=== PATIENT | female | born 1975 ===

== ENCOUNTER → 2018-05-23 13:17 | Outpatient (CLI) | payer OTHER, SELFPAY ==
--- NOTE | 2018-05-23 | DI.MG.S_ITS ---
BILATERAL DIGITAL SCREENING MAMMOGRAM 3D/2D WITH CAD: 05/23/2018 CLINICAL: Baseline exam. Routine screening. Family history of breast cancer. No prior exams were available for comparison. The tissue of both breasts is extremely dense, which lowers the sensitivity of mammography. Current study was also evaluated with a Computer Aided Detection (CAD) system. No significant masses, calcifications, or other findings are seen in either breast. IMPRESSION: NEGATIVE There is no mammographic evidence of malignancy. A 1 year screening mammogram is recommended. This exam was interpreted at Station ID: [id number]. NOTE: For mammograms, a report in lay terms will be sent to the patient. Approximately 15% of breast malignancies will not be visualized mammographically. In the management of a palpable breast mass, a negative mammogram must not discourage biopsy of a clinically suspicious lesion. Electronically Signed By: Moe elmore/angela:05/23/2018 16:15:52 letter sent: Normal Exam ACR BI-RADS Category 1: Negative 3341F
== END ==
PROVIDERS: PCP Family Medicine; Visit Provider Family Medicine
DX: Z12.31 Encounter for screening mammogram for malignant neoplasm of breast (principal); Z80.3 Family history of malignant neoplasm of breast
CPT/HCPCS: 77063; 77067

== ENCOUNTER → 2019-07-16 09:48 | Outpatient (CLI) | payer OTHER, SELFPAY ==
--- NOTE | 2019-07-16 | DI.MG.S_ITS ---
BILATERAL DIGITAL SCREENING MAMMOGRAM 3D/2D WITH CAD: 07/16/2019 CLINICAL: Routine screening. Family history of breast cancer. Comparison is made to exam dated: 05/23/2018 [facility]. The tissue of both breasts is extremely dense, which lowers the sensitivity of mammography. Current study was also evaluated with a Computer Aided Detection (CAD) system. No significant masses, calcifications, or other findings are seen in either breast. There has been no significant interval change. IMPRESSION: NEGATIVE There is no mammographic evidence of malignancy. A 1 year screening mammogram is recommended. This exam was interpreted at Station ID: [id number]. NOTE: For mammograms, a report in lay terms will be sent to the patient. Approximately 15% of breast malignancies will not be visualized mammographically. In the management of a palpable breast mass, a negative mammogram must not discourage biopsy of a clinically suspicious lesion. Electronically Signed By: Moe elmore/angela:07/16/2019 10:43:33 letter sent: Normal Exam ACR BI-RADS Category 1: Negative 3341F
== END ==
PROVIDERS: PCP Family Medicine; Referring Provider Family Medicine; Visit Provider Family Medicine
DX: Z12.31 Encounter for screening mammogram for malignant neoplasm of breast (principal); Z80.3 Family history of malignant neoplasm of breast
CPT/HCPCS: 77063; 77067

== ENCOUNTER → 2019-09-10 11:16 | Outpatient (CLI) | payer OTHER, SELFPAY ==
[2019-09-14 14:24] LABS: COVID19 Sendout Not Detected (Not Detected)
== END ==
PROVIDERS: PCP Family Medicine; Visit Provider Family Medicine
DX: R50.9 Fever, unspecified (principal)
CPT/HCPCS: 87635

== ENCOUNTER → 2019-09-18 10:42 | Outpatient (CLI) | payer OTHER, SELFPAY ==
--- NOTE | 2019-09-18 | DI.RAD.S_ITS ---
PROCEDURE: XR CHEST 2V INDICATIONS: Encounter for screening for other viral diseases TECHNIQUE: 2 views of the chest were acquired. COMPARISON: None. FINDINGS: Surgical changes and devices: None. Lungs and pleura: Lungs are clear. No pleural effusions or pneumothorax. Mediastinum: Mediastinal contours are normal. Heart size is normal. Bones and chest wall: No suspicious bony abnormalities. Soft tissues appear unremarkable. IMPRESSION: Normal chest, without infiltrates. Dictated by: Ronal Newsome M.D. on 09/18/2019 at 11:04 Approved by: Ronal Newsome M.D. on 09/18/2019 at 11:04
== END ==
PROVIDERS: PCP Family Medicine; Referring Provider Family Medicine; Visit Provider Family Medicine
DX: Z11.59 Encounter for screening for other viral diseases (principal); R50.9 Fever, unspecified
CPT/HCPCS: 71046

== ENCOUNTER → 2019-10-03 13:33 | Outpatient (CLI) | payer OTHER, SELFPAY ==
--- NOTE | 2019-10-03 | DI.RAD.S_ITS ---
PROCEDURE: XR CHEST 2V INDICATIONS: FEVER TECHNIQUE: 2 views of the chest were acquired. COMPARISON: [facility], CR, XR CHEST 2V, 09/18/2019, 10:44. FINDINGS: Surgical changes and devices: None. Lungs and pleura: Lungs are clear. No pleural effusions or pneumothorax. Mediastinum: Mediastinal contours are normal. Heart size is normal. Bones and chest wall: No suspicious bony abnormalities. Soft tissues appear unremarkable. IMPRESSION: Stable chest. No acute cardiopulmonary process is evident. Dictated by: Robson Garza M.D. on 10/03/2019 at 12:52 Approved by: Robson Garza M.D. on 10/03/2019 at 12:53
[2019-10-03 13:53] LABS: RBC Urine None Seen (0-5/HPF)
[2019-10-03 14:03] LABS: Add Manual Diff / Slide Review NO; Appearance Urine UA CLEAR; Basophils Absolute Auto 100 /uL (0-100); Basophils Percent Auto 1.5 % (0-2); Bilirubin Urine UA NEGATIVE (NEGATIVE); Color Urine UA YELLOW; Eosinophils Absolute Auto 300 /uL (0-450); Eosinophils Percent Auto 4.4 % (2-4); Glucose Urine UA NEGATIVE (Negative); Hematocrit 38.3 % (36-46); Hemoglobin 12.5 g/dL (12.0-16.0); Ketones Urine UA NEGATIVE (NEGATIVE); Leukocyte Esterase Urine UA NEGATIVE (NEGATIVE); Lymphocytes Absolute Auto 1900 /uL (1100-4500); Lymphocytes Percent Auto 31.1 % (25-40); Mean Corpuscular HGB Conc 32.7 % (30-36); Mean Corpuscular Hemoglobin 26.9 PG (26-34); Mean Corpuscular Volume 82.3 fL (80-100); Monocytes Absolute Auto 500 /uL (0-900); Neutrophils Absolute Auto 3300 /uL (1500-7000); Nitrite Urine UA NEGATIVE (Negative); Occult Blood Urine UA NEGATIVE (Negative); Platelet Count 298 X10^3/uL (150-400); Protein Urine UA NEGATIVE (Negative); Red Blood Cell Count 4.66 X10^6/uL (4.0-5.2); Specific Gravity Urine UA <=1.005 (1.000-1.035); Urobilinogen Urine UA 0.2 E.U./dL (0.2)
[2019-10-03 14:10] LABS: Bacteria Urine Occasional (0-1); Squamous Epithelial Cell Urine 0-1 /HPF (0-5/HPF); WBC Urine 0-1/HPF (0-5/HPF)
[2019-10-03 14:23] LABS: C-Reactive Protein Quant < 0.5 mg/dL (<1.0); Erythrocyte Sedimentation Rate 6 MM/HR (0-20)
[2019-10-03 23:51] LABS: Monotest Negative (Negative)
[2019-10-06 00:20] LABS: SARS CoV19 IgG Negative (Negative)
== END ==
PROVIDERS: PCP Family Medicine; Referring Provider Family Medicine; Visit Provider Family Medicine
DX: R50.9 Fever, unspecified (principal)
CPT/HCPCS: 36415; 71046; 81001; 85025; 85651; 86140; 86318; 86769; 87086

== ENCOUNTER → 2019-10-05 16:25 | Outpatient (ROUT) | payer OTHER, SELFPAY | PROVIDERS: PCP Family Medicine; Visit Provider Family Medicine | DX: R50.9 Fever, unspecified (principal) | CPT/HCPCS: 87070 ==

== ENCOUNTER → 2020-02-19 14:19 | Outpatient (CLI) | payer OTHER, SELFPAY ==
--- NOTE | 2020-02-19 | DI.RAD.S_ITS ---
PROCEDURE: XR CHEST 2V INDICATIONS: ATYPICAL CHEST PAIN TECHNIQUE: 2 views of the chest were acquired. COMPARISON: [facility], CR, XR CHEST 2V, 10/03/2019, 13:36. FINDINGS: Surgical changes and devices: None. Lungs and pleura: Lungs are clear. No pleural effusions or pneumothorax. Mediastinum: Mediastinal contours are normal. Heart size is normal. Bones and chest wall: No suspicious bony abnormalities. Soft tissues appear unremarkable. IMPRESSION: No acute disease Dictated by: Corby Rowe M.D. on 02/19/2020 at 15:44 Approved by: Corby Rowe M.D. on 02/19/2020 at 15:45
== END ==
PROVIDERS: PCP Family Medicine; Referring Provider Family Medicine; Visit Provider Family Medicine
DX: R07.89 Other chest pain (principal)
CPT/HCPCS: 71046

== ENCOUNTER → 2020-03-07 10:15 | Outpatient (CLI) | payer OTHER, SELFPAY ==
--- NOTE | 2020-04-05 08:04 | P.HOLT.S_ITS ---
Ut[employer]eman Report Referral & Results Date Patient Seen: 03/07/20 Requesting provider: Angeles Yarbrough Indication: Chest pain Duration of monitoring (days): 14 Diary information: There were 29 patient triggered events and 5 patient diary entries Patient triggered events were associated with (within 45 seconds) sinus rhythm, PACs and PVCs Patient diary events were associated with sinus rhythm only Data: Minimum heart rate identified was 41 beats per minute at 23:15 on 03/08/2020 Maximum heart rate was 160 beats per minute at 11:01 on 03/17/2020 Less than 1% of identified beats or either ventricular supraventricular ectopic in origin Patient had 1 run of SVT/atrial tachycardia that was 11 beats in duration at a rate of 120 beats per minute Impression: Essentially normal 14 day surveillance system monitor. Occasional PVCs and PACs. 1 brief run of atrial tachycardia as above. Difficult to correlate reported symptoms with 1 specific dysrhythmia. No significant dysrhythmias identified on this study.
== END ==
PROVIDERS: PCP Family Medicine; Referring Provider Family Medicine; Visit Provider Family Medicine
DX: R07.89 Other chest pain (principal)
CPT/HCPCS: 0296T; 0298T

== ENCOUNTER → 2020-04-04 15:13 | Outpatient (CLI) | payer OTHER, SELFPAY ==
[2020-04-04 17:34] LABS: COVID19 -Nasal RAPID Negative (Negative)
== END ==
PROVIDERS: PCP Family Medicine; Visit Provider Physician Assistant
DX: Z11.59 Encounter for screening for other viral diseases (principal)
CPT/HCPCS: 87635

== ENCOUNTER → 2020-04-06 15:06 | Outpatient (CLI) | payer OTHER, SELFPAY ==
--- NOTE | 2020-04-07 05:46 | DI.NM.S_ITS ---
DATE OF SERVICE: 04/06/2020 STUDY PERFORMED: Non-imaging standard exercise treadmill study. ORDERING PROVIDER: Dr. Sue Yarbrough. INDICATIONS: The patient is a 44-year-old female with a history of chest discomfort. FINDINGS: 1. The patient exercised for 16 minutes 39 seconds on a standard Nakul protocol suggesting exceptional exercise capacity with an TORRIE of -94%, achieving 16.9 METS. 2. She had a normal heart rate and blood pressure response to exercise, achieving a maximum heart rate of 172 BPM (98% of her predicted maximum). 3. She had no chest discomfort or other anginal symptom with exercise. 4. Resting ECG shows sinus rhythm at [address] segments. At peak exercise, she develops mild upsloping ST depression that resolves within 1 minute of recovery and, thus is nonspecific and likely a normal finding. There were no arrhythmias. IMPRESSION: 1. Normal standard exercise treadmill study for ischemia. 2. Exceptional exercise capacity without angina or arrhythmias. Mattie Garrison - RS/fn/stf doc#: [id number]/job#: [id number] dd: 04/06/2020 16:46:00 dt: 04/07/2020 05:31:00 DICTATING MD/COPIES TO: Khris Raya MD; Angeles Yarbrough MD COPIES MNE: NATY;
== END ==
PROVIDERS: PCP Family Medicine; Referring Provider Family Medicine; Visit Provider Family Medicine
DX: R07.89 Other chest pain (principal)
CPT/HCPCS: 93017

== ENCOUNTER → 2020-08-29 16:24 | Outpatient (CLI) | payer OTHER, SELFPAY ==
--- NOTE | 2020-08-29 16:26 | DI.MG.S_ITS ---
BILATERAL DIGITAL SCREENING MAMMOGRAM 3D/2D WITH CAD: 08/29/2020 CLINICAL: Routine screening. Family history of breast cancer. Comparison is made to exams dated: 07/16/2019 mammogram and 05/23/2018 mammogram - [facility]. The tissue of both breasts is extremely dense, which lowers the sensitivity of mammography. Current study was also evaluated with a Computer Aided Detection (CAD) system. No significant masses, calcifications, or other findings are seen in either breast. There has been no significant interval change. IMPRESSION: NEGATIVE There is no mammographic evidence of malignancy. A 1 year screening mammogram is recommended. This exam was interpreted at Station ID: [id number]. NOTE: For mammograms, a report in lay terms will be sent to the patient. Approximately 15% of breast malignancies will not be visualized mammographically. In the management of a palpable breast mass, a negative mammogram must not discourage biopsy of a clinically suspicious lesion. Electronically Signed By: Lul neal/angela:08/29/2020 16:58:11 letter sent: Normal Exam ACR BI-RADS Category 1: Negative 3341F
== END ==
PROVIDERS: PCP Family Medicine; Referring Provider Family Medicine; Visit Provider Family Medicine
DX: Z12.31 Encounter for screening mammogram for malignant neoplasm of breast (principal); Z80.3 Family history of malignant neoplasm of breast
CPT/HCPCS: 77063; 77067

== ENCOUNTER → 2021-01-06 08:41 | Outpatient (CLI) | payer OTHER, SELFPAY ==
--- NOTE | 2021-01-06 | DI.MRI.S_ITS ---
PROCEDURE: MR BRAIN (PITUITARY) WWO CON INDICATIONS: PITUITARY ADENOMA TECHNIQUE: Noncontrast sagittal and axial FLAIR, axial gradient echo, axial diffusion and ADC through the brain. Thin-slice sagittal and coronal T1 spin echo, coronal T2 fast spin echo through the pituitary. After the administration contrast, optional dynamic coronal T1 spin echo, thin-slice coronal and sagittal T1 spin echo images through the pituitary fossa; axial T1 spin echo with fat saturation through the brain. COMPARISON: [facility], MR, BRAIN (PITUITARY) W&WO MU, 05/24/2008, 10:05. FINDINGS: Image quality: Excellent. Pituitary Gland: The pituitary gland demonstrates normal signal and bulk. On the postcontrast imaging, no masses or abnormally enhancing areas are seen. The pituitary stalk and infundibulum have an unremarkable appearance. A normal appearing pituitary bright spot is seen posteriorly on the precontrast sagittal T1-weighted images. The optic chiasm and the ventral forebrain have an unremarkable appearance. CSF Spaces: Ventricles are normal in size and shape. Basal cisterns are patent. No extra-axial fluid collections. Brain: No intracranial bleeds or mass effects. No abnormal intracranial enhancement. Velez-white matter interface is intact. Diffusion weighted images demonstrate no acute ischemic insults. Brainstem is normal. Normal intravascular flow voids are present. Skull and face: Calvarial marrow is normal in signal. Orbits appear normal. Sinuses: Sinuses and mastoids are clear. IMPRESSION: Normal pituitary gland. No masses are seen to suggest pituitary adenoma. Normal intracranial study, with a normal appearing brain. No masses or abnormal enhancement can be seen. Dictated by: Ronal Newsome M.D. on 01/06/2021 at 9:09 Approved by: Ronal Newsome M.D. on 01/06/2021 at 9:11
== END ==
PROVIDERS: PCP Family Medicine; Referring Provider Family Medicine; Visit Provider Family Medicine
DX: D35.2 Benign neoplasm of pituitary gland (principal)
CPT/HCPCS: 70553

== ENCOUNTER → 2021-08-31 11:09 | Outpatient (CLI) | payer OTHER, SELFPAY ==
--- NOTE | 2021-08-31 | DI.MG.S_ITS ---
BILATERAL DIGITAL SCREENING MAMMOGRAM 3D/2D WITH CAD: 08/31/2021 CLINICAL: Routine screening. Family history of breast cancer. Comparison is made to exams dated: 08/29/2020 mammogram, 07/16/2019 mammogram, and 05/23/2018 mammogram - [facility]. The tissue of both breasts is extremely dense, which lowers the sensitivity of mammography. Current study was also evaluated with a Computer Aided Detection (CAD) system. No significant masses, calcifications, or other findings are seen in either breast. There has been no significant interval change. IMPRESSION: NEGATIVE There is no mammographic evidence of malignancy. A 1 year screening mammogram is recommended. This exam was interpreted at Station ID: [id number]. NOTE: For mammograms, a report in lay terms will be sent to the patient. Approximately 15% of breast malignancies will not be visualized mammographically. In the management of a palpable breast mass, a negative mammogram must not discourage biopsy of a clinically suspicious lesion. Electronically Signed By: Idris black/angela:08/31/2021 15:52:43 letter sent: Normal Exam ACR BI-RADS Category 1: Negative 3341F
== END ==
PROVIDERS: PCP Family Medicine; Referring Provider Family Medicine; Visit Provider Family Medicine
DX: Z12.31 Encounter for screening mammogram for malignant neoplasm of breast (principal); Z80.3 Family history of malignant neoplasm of breast
CPT/HCPCS: 77063; 77067

== ENCOUNTER → 2022-10-22 10:47 | Outpatient (CLI) | payer OTHER, SELFPAY ==
--- NOTE | 2022-10-22 | DI.MG.S_ITS ---
BILATERAL DIGITAL SCREENING MAMMOGRAM 3D/2D WITH CAD: 10/22/2022 CLINICAL: Routine screening. Family history of breast cancer. Comparison is made to exams dated: 08/31/2021 mammogram, 08/29/2020 mammogram, and 07/16/2019 mammogram - [facility]. Both breasts are extremely dense, which lowers the sensitivity of mammography (category d />75% glandular tissue). Current study was also evaluated with a Computer Aided Detection (CAD) system. No significant masses, calcifications, or other findings are seen in either breast. There has been no significant interval change. IMPRESSION: NEGATIVE There is no mammographic evidence of malignancy. A 1 year screening mammogram is recommended. Based on Tyrer-Cuzick model (a risk assessment model), the patient's lifetime risk is 39.1% and her 10 year risk is 9.2%. If a patient has an elevated risk, a more comprehensive evaluation should be considered and/or a referral to a genetic counselor. The [place] [employer], [employer], and NCCN Guidelines advise the consideration of Breast MRI as an adjunct to screening mammography in patients whose Lifetime risk to develop breast cancer is 20% or higher. This exam was interpreted at Station ID: [id number]. NOTE: For mammograms, a report in lay terms will be sent to the patient. Approximately 15% of breast malignancies will not be visualized mammographically. In the management of a palpable breast mass, a negative mammogram must not discourage biopsy of a clinically suspicious lesion. Electronically Signed By: Linda leonard/angela:10/22/2022 14:03:41 letter sent: Normal Exam ACR BI-RADS Category 1: Negative 3341F
== END ==
PROVIDERS: PCP Family Medicine; Referring Provider Family Medicine; Visit Provider Family Medicine
DX: Z12.31 Encounter for screening mammogram for malignant neoplasm of breast (principal); Z80.3 Family history of malignant neoplasm of breast
CPT/HCPCS: 77063; 77067

== ENCOUNTER → 2022-11-26 12:09 | Outpatient (CLI) | payer OTHER, SELFPAY ==
--- NOTE | 2022-11-26 | DI.RAD.S_ITS ---
PROCEDURE: XR HAND RT MIN 3V INDICATIONS: BILATERAL HAND AND KNEE PAIN TECHNIQUE: 3 views of the hand(s) acquired. COMPARISON: None. FINDINGS: Bones: No fractures or dislocations. Carpal bones are normally aligned. No suspicious bony lesions. Soft tissues: No suspicious soft tissue calcifications. IMPRESSION: No acute bony abnormality. Dictated by: Sudarshan Butler M.D. on 11/26/2022 at 14:36 Approved by: Sudarshan Butler M.D. on 11/26/2022 at 14:36
--- NOTE | 2022-11-26 | DI.RAD.S_ITS ---
PROCEDURE: XR HAND LT MIN 3V INDICATIONS: BILATERAL HAND AND KNEE PAIN TECHNIQUE: 3 views of the hand(s) acquired. COMPARISON: None. FINDINGS: Bones: No fractures or dislocations. Carpal bones are normally aligned. No suspicious bony lesions. Soft tissues: No suspicious soft tissue calcifications. IMPRESSION: No acute bony abnormality. Dictated by: Sudarshan Butler M.D. on 11/26/2022 at 14:35 Approved by: Sudarshan Butler M.D. on 11/26/2022 at 14:35
--- NOTE | 2022-11-26 | DI.RAD.S_ITS ---
PROCEDURE: XR KNEE RT 3V INDICATIONS: BILATERAL HAND AND KNEE PAIN TECHNIQUE: 3 views of the knee were acquired. COMPARISON: None. FINDINGS: Bones: No fractures or dislocations. No suspicious bony lesions. Soft tissues: Small joint effusion. No suspicious soft tissue calcifications. IMPRESSION: Small knee joint effusion. No significant degenerative change or acute bony abnormality. Dictated by: Sudarshan Butler M.D. on 11/26/2022 at 14:34 Approved by: Sudarshan Butler M.D. on 11/26/2022 at 14:35
--- NOTE | 2022-11-26 | DI.RAD.S_ITS ---
PROCEDURE: XR KNEE LT 3V INDICATIONS: BILATERAL HAND AND KNEE PAIN TECHNIQUE: 3 views of the knee were acquired. COMPARISON: None. FINDINGS: Bones: No fractures or dislocations. No suspicious bony lesions. Soft tissues: No joint effusion. No suspicious soft tissue calcifications. IMPRESSION: No acute bony abnormality. No significant degenerative change. Dictated by: Sudarshan Butler M.D. on 11/26/2022 at 14:34 Approved by: Sudarshan Butler M.D. on 11/26/2022 at 14:34
== END ==
PROVIDERS: PCP Family Medicine; Referring Provider Family Medicine; Visit Provider Family Medicine
DX: M25.561 Pain in right knee (principal); M25.562 Pain in left knee; M25.541 Pain in joints of right hand; M25.542 Pain in joints of left hand; M25.461 Effusion, right knee
CPT/HCPCS: 73130; 73562

== ENCOUNTER → 2024-02-05 08:38 | Outpatient (CLI) | payer OTHER, SELFPAY ==
--- NOTE | 2024-02-05 | DI.MG.S_ITS ---
BILATERAL DIGITAL SCREENING MAMMOGRAM 3D/2D WITH CAD: 02/05/2024 CLINICAL: Routine screening. Family history of breast cancer. Comparison is made to exams dated: 10/22/2022 mammogram, 08/31/2021 mammogram, and 08/29/2020 mammogram - [facility]. The breasts are extremely dense, which lowers the sensitivity of mammography (category d />75% glandular tissue). Current study was also evaluated with a Computer Aided Detection (CAD) system. No significant masses, calcifications, or other findings are seen in either breast. There has been no significant interval change. IMPRESSION: NEGATIVE There is no mammographic evidence of malignancy. A 1 year screening mammogram is recommended. Based on Tyrer-Cuzick model (a risk assessment model), the patient's lifetime risk is 38.9% and her 10 year risk is 9.6%. If a patient has an elevated risk, a more comprehensive evaluation should be considered and/or a referral to a genetic counselor. The [place] [employer], [place], and NCCN Guidelines advise the consideration of Breast MRI as an adjunct to screening mammography in patients whose Lifetime risk to develop breast cancer is 20% or higher. This exam was interpreted at Station ID: [id number]. NOTE: For mammograms, a report in lay terms will be sent to the patient. Approximately 15% of breast malignancies will not be visualized mammographically. In the management of a palpable breast mass, a negative mammogram must not discourage biopsy of a clinically suspicious lesion. Electronically Signed By: Aysha kraus/angela:02/05/2024 13:11:48 letter sent: Normal Exam ACR BI-RADS Category 1: Negative 3341F
== END ==
LOC: MAMMO 08:39
PROVIDERS: PCP Family Medicine; Referring Provider Family Medicine; Visit Provider Family Medicine
DX: Z12.31 Encounter for screening mammogram for malignant neoplasm of breast (principal); Z80.3 Family history of malignant neoplasm of breast; R92.343 Mammographic extreme density, bilateral breasts
CPT/HCPCS: 77063; 77067

== ENCOUNTER → 2025-02-22 10:11 | Outpatient (CLI) | payer OTHER, SELFPAY ==
--- NOTE | 2025-02-22 10:14 | DI.RAD.S_ITS ---
PROCEDURE: XR CHEST 2V INDICATIONS: SOB TECHNIQUE: 2 views of the chest were acquired. COMPARISON: [facility], , XR CHEST 2V, 02/19/2020, 13:20. FINDINGS: Heart, mediastinum and pulmonary vascular: Heart is normal in size and configuration. Mediastinum is unremarkable. Pulmonary vascular is normal. Lungs: Clear Pleural spaces: Normal-no effusions or pneumothorax. Bones and soft tissues: Normal IMPRESSION: Normal chest. Dictated by: Mono Mathew M.D. on 02/23/2025 at 9:39 Approved by: Mono Mathew M.D. on 02/23/2025 at 9:39
== END ==
LOC: RAD 10:12
PROVIDERS: PCP Family Medicine; Referring Provider Family Medicine; Visit Provider Family Medicine
DX: R06.02 Shortness of breath (principal); N92.1 Excessive and frequent menstruation with irregular cycle
CPT/HCPCS: 71046; 85610; 85730

== ENCOUNTER → 2025-02-22 10:34 | Outpatient (ROUT) | payer OTHER, SELFPAY ==
[2025-02-22 10:45] LABS: INR 1.0 (0.9-1.3); Prothrombin Time 11.2 SECONDS (9.4-12.5)
[2025-02-22 10:48] LABS: PTT Partial Thromboplastin Tim 25 SECONDS (25.1-36.5)
== END ==
PROVIDERS: PCP Family Medicine; Visit Provider Family Medicine
DX: N92.1 Excessive and frequent menstruation with irregular cycle (principal)
CPT/HCPCS: 85610; 85730

== ENCOUNTER → 2025-03-03 11:55 | Outpatient (CLI) | payer OTHER, SELFPAY ==
--- NOTE | 2025-03-03 11:58 | DI.US.S_ITS ---
PROCEDURE: US PERIPH VENOUS LOW EXTREM LT INDICATIONS: Left calf pain TECHNIQUE: Real-time imaging, as well as color and pulse Doppler interrogation, were performed of the lower extremity deep veins from the inguinal ligament to the popliteal fossa, with documentation of the visualized calf veins. COMPARISON: None. FINDINGS: The common femoral, femoral, popliteal, and the visualized calf veins are normally compressible, and free of intraluminal thrombus. Color and pulse Doppler demonstrate normal phasic intraluminal flow. There is normal augmentation response to distal compression maneuver. IMPRESSION: No findings of lower extremity deep venous thrombosis. Dictated by: Negro Flowers M.D. on 03/03/2025 at 14:39 Approved by: Negro Flowers M.D. on 03/03/2025 at 14:39
--- NOTE | 2025-03-03 11:58 | DI.US.S_ITS ---
P LC flexion both thins this ROCEDURE: US PELVIC COMPLETE INDICATIONS: irregular cycle TECHNIQUE: Real-time scanning was performed of the pelvic organs, with image documentation. Additional endovaginal scanning was necessary due to incomplete visualization of the adnexal and endometrial structures by transabdominal scanning. COMPARISON: None. FINDINGS: Uterus is retroverted and measures 8.8 by 7.3 cm in sagittal plane. Endometrium not well demonstrated. Multiple uterine fibroids. The largest is in the fundus measuring 4.0 cm in greatest dimension. Additional submucosal uterine fibroids. Incidental nabothian cysts noted. Right ovary measures 3.7 x 3.1 x 1.4 cm with volume 8.2 mL. Left ovary not well demonstrated. Trace free fluid in the pelvis. IMPRESSION: Fibroid uterus. Limited examination: Left ovary not identified. Right ovary not well demonstrated. Uterus partially obscured due to size retroverted positioning. Endometrium not well defined. Contained We strive to produce accurate, complete, and clear reports of imaging services. To assist us in improving patient care, this report was composed using standard report templates and voice recognition software. Therefore, it may contain abnormal punctuation, insertions and/or omissions. Occasional wrong-word or sound-alike substitutions may occur. Though we review the report and make efforts to correct it, we do recommend that the report be read carefully in proper context to recognize any text inaccuracies. Dictated by: Fabian Galloway M.D. on 03/03/2025 at 19:06 Approved by: Fabian Galloway M.D. on 03/03/2025 at 19:11
== END ==
LOC: US 11:56
PROVIDERS: PCP Family Medicine; Referring Provider Family Medicine; Visit Provider Family Medicine
DX: N92.1 Excessive and frequent menstruation with irregular cycle (principal); M79.605 Pain in left leg; D25.0 Submucous leiomyoma of uterus
CPT/HCPCS: 76830; 76856; 93971

== ENCOUNTER → 2025-04-05 09:59 | Outpatient (CLI) | payer OTHER, SELFPAY ==
[2025-04-05 10:17] LABS: Add Manual Diff / Slide Review NO; Hematocrit 38.6 % (36-46); Hemoglobin 12.7 g/dL (12.0-16.0); Lymphocytes Absolute Auto 1200 /uL (1100-4500); Mean Corpuscular HGB Conc 32.9 % (30-36); Mean Corpuscular Hemoglobin 27.6 PG (26-34); Mean Corpuscular Volume 83.7 fL (80-100); Platelet Count 327 X10^3/uL (150-400)
[2025-04-05 11:04] LABS: HEMOLYSIS < 15 (0-50); Iron 81 ug/dL (37-170)
[2025-04-05 11:14] LABS: Percent Iron Saturation 23 % (15-50); Total Iron Binding Capacity 349 ug/dL (265-497); Transferrin 318 mg/dL (206-381)
== END ==
PROVIDERS: PCP Family Medicine; Referring Provider Obstetrics & Gynecology; Visit Provider Obstetrics & Gynecology
DX: N93.9 Abnormal uterine and vaginal bleeding, unspecified (principal)
CPT/HCPCS: 36415; 83540; 83550; 85025

== ENCOUNTER 2025-04-08 13:13 | Day surgery (SDC) | payer OTHER, SELFPAY ==
[2025-04-05 12:12] VITALS: BMI 23.8
--- NOTE | 2025-04-08 | PATH_ITS ---
[facility] Accession Number: [id number] No. of containers..02 Tissue . 01 Material submitted: . PART A: UTERINE - UTERINE FIBROIDS PART B: endometrium - ENDOMETRIAL CURETTINGS . 01 Diagnosis: A. UTERINE FIBROIDS: Benign leiomyoma fragments. . B. ENDOMETRIAL CURETTINGS: Scant inactive-type endometrium. No significant cytologic atypia and no malignancy. [facility] 04/19/2025 1412 Local . 01 Electronically signed: . Christy Goldberg MD, Pathologist NPI- [id number] . 01 Gross description: . A. Received in formalin labeled with two patient identifiers and uterine fibroids, and consists of a 6.0 x 4.1 x 1.5 cm, 7 gram, aggregate of white, rubbery, morcellated tissues, which are entirely submitted in cassettes A1-A5. B. Received in formalin labeled with two patient identifiers and endometrial curettings, and consists of a 2.5 x 2.0 x 0.9 cm aggregate of clotted blood and mucus admixed with bowden soft tissue. which is filtered and entirely submitted in cassette B1. ([id number]) /SALAZAR 04/12/2025 0613 Local . 01 Pathologist provided ICD-10: D25.9 . 01 CPT . 344834, 410201 Specimen Comment: A courtesy copy of this report has been sent to [phone] Performed at: [address] [id number] MD Moe Erickson MD Phone: [phone]
[2025-04-08 13:41] VITALS: BP 129/72; PULSE 56; RESP 16; TEMP 36.8; O2SAT 99
[2025-04-08] MEDS: SCOPOLAMINE 1 PATCH TOP (13:54)
[2025-04-08] MEDS: LACTATED RINGERS 1,000 ML 42 ML IV (13:54)
--- NOTE | 2025-04-08 14:50 | PM.PREOP ---
Pre-operative Note COVID-19 COVID-19 status: Not tested Interval Note History & Physical reviewed/Exam performed by Physician: Yes Changes to H&P: No
--- NOTE | 2025-04-08 15:46 | SUR.OPER ---
Lithotomy on padded OR bed, head on pillow, arms secured on padded arm boards at <90 degrees abduction. Legs secured in padded yellow fins stirrups.
--- NOTE | 2025-04-08 16:41 | PM.GYNOP.1 ---
Operative Date/Time/Diagnoses Date of procedure: 04/08/25 Time of procedure: 16:10 Pre-op diagnosis: Abnormal uterine bleeding Submucous uterine fibroids Post-op diagnosis: same Procedure & Clinicians Procedure: Procedures Operation Date: 04/08/25 14:30 Actual Procedure Side Surgeon p Hysteroscopy MyoSure Myomectomy s Curettage of the uterus s Mirena IUD insertion Frederick Cash MD Indications: 49yo perimenopausal female presents for acute problem visit, referral from PCP ([facility] Dr. Yarbrough) for further evaluation of 4mos acute on chronic daily heavy vaginal bleeding. Pt states that she first noted an increase in volume of cyclic bleeding 2 years ago and has been trying to just work through it. For the last 4 mos she has had almost daily bleeding that varies in volume but at times is quite heavy with passage of clots. Within the last month she has appreciated progressive exercise intolerance and feels tired all of the time which is not normal for her. She saw her PCP and was started on combined NATASHA without improvement in bleeding profile. She completed DI-pelvic US 03/03/25 that resulted significant for multiple fibroids however visualization was limited secondary to severe uterine retroflexion. Patient states remote h/o abnormal pap but with subsequent normal surveillance. Has noticed some increasing climacteric symptoms of perimenopause (+night sweats, +insomnia, +brain fog), denies dyspareunia but has not had intimacy for several weeks due to bleeding. Amenable to recommendation for interval US in office today for further delineation of any underlying structural anomaly. Patient states she has been counseled by prior providers as well as friends that she may need an endometrial ablation or hysterectomy. No additional concerns identified. Surgeon: Frederick Cash Anesthesia Type: General Operative Notes Findings: The uterus is acutely retroverted and upper limits of normal size. It is somewhat globoid in shape and firm. Adnexal structures were nonpalpable. The endometrium itself is relatively unremarkable but there are 2 FIGO type 1 fibroids arising from the right lateral upper uterine segment sidewall as well as in the cornual area on the right side of the endometrial cavity. These fibroids were both removed with the MyoSure XL device during the course of her surgery. Closure Type: not applicable Specimen(s): endometrial curettings and other (Submucous myoma fragments) Applied: other (Tranexamic acid) Estimated blood loss (mL): 50 Blood products transfused: none Procedure in detail: With the patient under satisfactory general anesthesia in the modified dorsal lithotomy position, the perineum, vagina, and lower abdomen were prepped and draped in the usual manner for hysteroscopy. A pre-surgical safety time-out was then taken in accordance with [facility] Main OR protocols. Bimanual examination under anesthesia was performed with the findings as noted above. A tenaculum was placed on the anterior lip of the cervix. The endocervical canal was then dilated to 6 mm and a MyoSure hysteroscope was introduced into the endometrial cavity with saline as the distention medium. Findings were noted as above. A MyoSure XL device was then introduced through the scope and resection of the distal fibroid was accomplished easily. The more cephalad fibroid in the right cornual area was also resected with the MyoSure XL which had become doll and a 2nd MyoSure XL was used to complete resection of the 2nd fibroid. Gentle curettage of the endometrial cavity was then performed with collection of additional specimen for submission. The Mirena IUD was then inserted into the uppermost portion of the endometrial cavity in the usual manner in the strings trimmed to 3 cm in length. The tenaculum was removed from the anterior lip of the cervix and no significant bleeding was noted. Patient received a 1000 mg of tranexamic acid at the conclusion of the case in order to potentially reduce the postoperative blood loss from myomectomy. Patient was then awakened from anesthesia after removal of the speculum from the vagina and transferred to the PACU for a period of observation and recovery after having tolerated the procedure well. Complications: none Post-operative Condition: stable Disposition: PACU Plan for aftercare: Routine postoperative care with follow-up planned for 2 weeks after surgery
[2025-04-08 16:43] VITALS: BP 100/56; PULSE 55; RESP 19; TEMP 36.1; O2SAT 97
[2025-04-08 16:45] VITALS: BP 98/57; PULSE 55; RESP 13; O2SAT 96
[2025-04-08 16:50] VITALS: BP 102/61; PULSE 57; RESP 12; O2SAT 97
[2025-04-08 16:55] VITALS: BP 107/64; PULSE 55; RESP 14; TEMP 36.2; O2SAT 99
[2025-04-08 17:10] VITALS: BP 111/70; PULSE 57; RESP 18; O2SAT 99
== END 2025-04-08 17:40 | disposition home or self-care (01) ==
PROVIDERS: Obstetrics & Gynecology; PCP Family Medicine; Referring Provider Obstetrics & Gynecology; Visit Provider Obstetrics & Gynecology
PROC: 0UDB8ZZ Extraction of Endometrium, Via Natural or Artificial Opening Endoscopic (ICD-10-PCS; CPT 58558; principal; 2025-04-08 14:30)
DX: N93.9 Abnormal uterine and vaginal bleeding, unspecified (principal); D25.1 Intramural leiomyoma of uterus; Z87.891 Personal history of nicotine dependence
CPT/HCPCS: 58561; 58300; C1771; C1713; J1100; J2250; J2405; J2704; J3010; J7120